=== PATIENT | male | born 1995 | race Caucasian/White ===

== ENCOUNTER 2018-12-19 02:03 | Emergency (ER) | payer BC ==
--- NOTE | 2018-12-19 02:12 | EDPHY ---
H & P Time Seen by Provider: 12/19/18 02:09 HPI/ROS: Chief Complaint: Depression, suicidal ideation HPI: 23-year-old male with a history of depression, seizure disorder, multiple brain surgeries is being brought in on a mental health hold tonight placed by police after the patient became upset this morning. Patient states that he is increasingly depressed about being alone. He is feeling suicidal but does not have a specific plan. He has had hospitalizations for depression in the past. He has been compliant with his medications. Denies any other ingestions. No recent illness. No fevers or chills. No headache. No nausea or vomiting. No chest pain or shortness of breath. ROS: 10 systems were reviewed and were negative except those elements noted in the HPI. PMH: Depression, seizure disorder, brain surgeries Social History: No smoking, no alcohol, no recreational drug use Family History: non-contributory Physical Exam: Gen: Awake, Alert, No Distress HEENT: Nose: no rhinorrhea Eyes: PERRLA, EOMI Mouth: Moist mucosa Neck: Supple, no JVD Chest: nontender, lungs clear to auscultation Heart: S1, S2 normal, no murmur Abd: Soft, non-tender, no guarding Back: no CVA tenderness, no midline tenderness Ext: no edema, non-tender Skin: no rash Neuro: CN II-XII intact, Sensation grossly intact, Strength 5/5 in bilateral upper and lower extremities, left foot drop chronically (Luther Hector) Constitutional: Initial Vital Signs Temperature (C) 36.2 C 12/19/18 02:16 Heart Rate 93 12/19/18 02:16 Respiratory Rate 16 12/19/18 02:16 Blood Pressure 139/85 H 12/19/18 02:16 O2 Sat (%) 95 12/19/18 02:16 O2 Delivery Mode Room Air Allergies/Adverse Reactions: lorazepam [From Ativan] Allergy (Verified 02/23/10 17:18) Home Medications: Medication Instructions Recorded ARIPiprazole [Aripiprazole] 30 mg PO DAILY@1830 12/19/18 Cholecalciferol Vit D3 [Vitamin D3 2,000 units PO DAILY@1530 12/19/18 (*)] Desvenlafaxine Succinate 25 mg PO DAILY@20 12/19/18 [Desvenlafaxine Succinate ER] Desvenlafaxine Succinate 50 mg PO DAILY@12/19/18 [Desvenlafaxine Succinate ER] Magnesium Citrate mg 12/19/18 OXcarbazepine [Trileptal 300mg (*)] 300 mg PO DAILY@12/19/18 OXcarbazepine [Trileptal 300mg (*)] 450 mg PO DAILY@12/19/18 Phenytoin Sodium Extended 30 mg PO 12/19/18 [Dilantin] Phosphatidylserine-Epa/Randall-3 450 mg PO DAILY 12/19/18 [Vayarin Plus 225 mg Capsule] Pregabalin [Lyrica 75mg (*)] 150 mg PO DAILY@12/19/18 Pregabalin [Lyrica] 25 mg PO DAILY@12/19/18 QUEtiapine FUMARATE [Seroquel 25 25 - 50 mg PO HS 12/19/18 mg (*)] Temazepam [Restoril 15 MG (*)] 15 mg PO HS PRN 12/19/18 lamoTRIgine [LaMICtal] 50 mg PO DAILY 12/19/18 Medical Decision Making ED Course/Re-evaluation: 0700 patient signed out to Dr. Laboy pending mental health evaluation. (Luther Hector) Other Provider: I assumed care of the patient at 0700. The patient was evaluated by Mental Health. Collateral information is obtained from the patient's mother. The patient does contract for safety mother does feel comfortable the patient being discharged home. The psychiatric service has vacated the patient's psychiatric hold. (Kiko Laboy) - Data Points Laboratory Results: Laboratory Results 12/19/18 02:20 12/19/18 02:20 12/19/18 12/19/18 12/19/18 09:00 02:20 02:20 WBC 3.75 10^3/uL L 10^3/uL (3.80-9.50) RBC 4.99 10^6/uL 10^6/uL (4.40-6.38) Hgb 15.1 g/dL g/dL (13.7-17.5) Hct 46.0 % % (40.0-51.0) MCV 92.2 fL fL (81.5-99.8) MCH 30.3 pg pg (27.9-34.1) MCHC 32.8 g/dL g/dL (32.4-36.7) RDW 13.7 % % (11.5-15.2) Plt Count 164 10^3/uL 10^3/uL (150-400) MPV 9.8 fL fL (8.7-11.7) Neut % (Auto) Not Reported Lymph % (Auto) Not Reported Marinette % (Auto) Not Reported Eos % (Auto) Not Reported Baso % (Auto) Not Reported Nucleat RBC Rel Count Not Reported Absolute Neuts (auto) Not Reported Absolute Lymphs (auto) Not Reported Absolute Monos (auto) Not Reported Absolute Eos (auto) Not Reported Absolute Basos (auto) Not Reported Absolute Nucleated RBC Not Reported Immature Gran % Not Reported Seg Neutrophils % 28.1 % % Band Neutrophils % 0.0 % % Lymphocytes % 61.5 % % Monocytes % 8.3 % % Eosinophils % 1.1 % % Basophils % 1.0 % % Metamyelocytes % 0.0 % % Myelocytes % 0.0 % % Promyelocytes % 0.0 % % Blast Cells % 0.0 % % Immature Gran # Not Reported Absolute Seg Neuts 1.05 10^3/uL L 10^3/uL (1.70-6.50) Absolute Band Neuts 0.00 10^3/uL 10^3/uL (0.00-0.70) Absolute Lymphocytes 2.31 10^3/uL 10^3/uL (1.00-3.00) Absolute Monocytes 0.31 10^3/uL 10^3/uL (0.30-0.80) Absolute Eosinophils 0.04 10^3/uL 10^3/uL (0.03-0.40) Absolute Basophils 0.04 10^3/uL 10^3/uL (0.02-0.10) Absolute Metamyelocyte 0.00 10^3/mL 10^3/mL (0.00-0.00) Absolute Myelocytes 0.00 10^3/mL 10^3/mL (0.00-0.00) Absolute Promyelocytes 0.00 10^3/uL 10^3/uL (0.00-0.00) Absolute Plasma Cells 0.00 10^3/uL 10^3/uL (0.00-0.00) Nucleated RBCs 0 /100 WBC /100 WBC (0-0) Atypical Lymphocytes 1+ H Absolute Blast Cells 0.00 10^3/uL 10^3/uL (0.00-0.00) Plasma Cells % 0.0 % % Platelet Estimate ADEQUATE (ADEQ) Oval Macrocytes 2+ H Sodium 141 mEq/L mEq/L (135-145) Potassium 4.3 mEq/L mEq/L (3.5-5.2) Chloride 105 mEq/L mEq/L (97-110) Carbon Dioxide 24 mEq/l mEq/l (22-31) Anion Gap 12 mEq/L mEq/L (6-14) BUN 13 mg/dL mg/dL (7-23) Creatinine 0.8 mg/dL mg/dL (0.7-1.3) Estimated GFR > 60 Glucose 109 mg/dL H mg/dL (70-100) Calcium 9.2 mg/dL mg/dL (8.5-10.4) Urine Opiates Screen NEGATIVE (NEGATIVE) Urine Barbiturates NON-NEGATIVE H (NEGATIVE) Ur Phencyclidine Scrn NON-NEGATIVE H (NEGATIVE) Ur Amphetamine Screen NEGATIVE (NEGATIVE) U Benzodiazepines Scrn NEGATIVE (NEGATIVE) Urine Cocaine Screen NEGATIVE (NEGATIVE) U Marijuana (THC) Screen NEGATIVE (NEGATIVE) Ethyl Alcohol < 10 mg/dL mg/dL (0-10) Departure - Departure Disposition: Home, Routine, Self-Care Clinical Impression: Severe major depression Condition: Fair Instructions: Depression (ED) Additional Instructions: 1. Please follow-up with the mental health resources provided in the ED today. 2. [facility] does operate a 24/ psychiatric crisis unit located at [facility]. The telephone number for the 24 hour crisis center is [phone]. 3. Please return to the ED if you are feeling suicidal, having thoughts of harming yourself/others or should you feel unsafe or have worsening symptoms.
[2018-12-19 02:33] LABS: PLATELET COUNT 164 10^3/uL (150-400)
[2018-12-19] MEDS ORDERED: OXcarbazepine 300 MG TAB PO SCH (08:00)
[2018-12-19] MEDS ORDERED: PREGABALIN 25 MG CAP PO ONE (08:00)
[2018-12-19] MEDS ORDERED: ARIPiprazole 10 MG TAB PO SCH (08:00)
[2018-12-19] MEDS ORDERED: PHENYTOIN SODIUM EXTENDED 100 MG CAP PO ONE (08:00)
[2018-12-19] MEDS ORDERED: OMEGA-3 FATTY ACIDS 1,000 MG CAP PO SCH (08:00)
[2018-12-19 08:52] VITALS: BP 110/72
--- NOTE | 2018-12-19 11:11 | ASMTTLCEVL ---
TLC Evaluation - Basic Information Evaluation Start Date and 12/19/2018 09:30 AM Time Hospital Status Answers: M1 Hold 72-hr M1 Hold Start Date 12/19/2018 01:20 AM and Time Patient statement Notes: I was kind of depressed last night. My father called 911. I have some thoughts about suicide but I would never act on them. I feel much better this morning. I feel I can ensure my own safety if permitted to leave the hospital. Narrative Notes: Pt is a 23 yo, single, disabled, male with reported history of seizure disorders and 9-[address] [facility] and history of depression with psychotic features, brought to [facility] ED by [employer] on M1 hold which noted: Respondent was angry with his father for unknown reason. Respondent threw a show at father. There were texts sent to father referencing suicidal thoughts. Upon contact, respondent told officer he wanted to commit suicide, but couldnt (wouldnt provide further). Respondent told officer he was going to hurt himself. Pt reported having fleeting suicidal ideation last night, currently denies intent/plans/means to attempt to kill himself. Pt denied any homicidal ideation. Pt denied having any A/V hallucinations and did not appear to be responding to any internal stimuli. Diagnosis History Notes: Major depression with psychotic features. Prior suicide attempts Notes: Pt denied any past history of suicide attempts. Prior hospitalizations Notes: Pt reported being hospitalized at [facility] at age 13 or 14. He was hospitalized at [facility] at age 17 for hearing voices. Treatment Responses Notes: Mother reported that pt is medication compliant. History of violence Notes: Pt and mother denied any history of aggression/violence. Therapist: None. Psychiatrist: Psychiatrist is Clint Armstrong MD for the past 5 years. Pts neurologist is Carmita Burris MD. Medications (name, dosage, route, freq uency) Notes: Dilantin 30 mg po TID , 1529, 1999; Lyrica 175 mg po daily; Trileptal 450 mg po BID at 08 and 1529 and 300 mg po at 1999; Lesfenelec 50 mg po at 1999 and 25 mg po at 1999; Abilify 30 mg po daily; Seroquel 12.5 mg po at 1830; Lamotrigine 37.5 mg po at 1830; Vitamin D3 2000 IU po daily at 1530; Fish oil 1280 mg BID at 08 and 1530. Allergies/Reaction Notes: Lorazepam (from Ativan). Sleep Notes: WNL. Appetite Notes: WNL. Medical/Surgical history Notes: Pt has history of seizure disorder since 18 months of age and has had 9 or 10 corrective surgeries at [facility]. Pt reported the last time he had a seizure was 10-11 years ago. Substance use history (frequency, intensity, his tory, duration) Notes: None reported. BAL zero. UDS results positive for barbiturates and phencyclidine (prescription medications). Family composition Notes: Parents, Eloise Oshea and Martin Pettit remain . Pt has a 27 yo sister that also resides in [facility]. Need for family Answers: Yes participation in patient's care Family psychiatric/substance abuse history Notes: Mother, Emiliana Oshea reported having history of depression; maternal grandfather with history of alcoholism. Denied any family history of suicide attempts or completions. Developmental history Notes: Pt reported he was born in [place], [place] and lived there until age 7 when family moved to [place]. Pt denied any history of TBIs, LOC or concussions. Pt denied any childhood experiences of physical, emotional or sexual abuse/trauma. Abuse concerns Answers: None Marital status/children Notes: Pt is single, never , no dependents. Living situation Notes: Pt resides with his parents in [place]. Sexual history/orientation Notes: Not active. Heterosexual. Peer support/family strengths Notes: Parents. Education level/history Notes: Pt reported he dropped out mid-way through the 11th grade. Work history Notes: Pt has been on disability since age 17. Notes: None. Legal Notes: No arrest/legal history reported. Protestant/Spiritual Notes: Pt reported he believes in a higher power. Leisure Notes: Pt reported he enjoys video and computer nimo and listening to music. Collateral Notes: Mother, Eloise Oshea [phone], present with pt in ED throughout interview. Patient's strengths Answers: Funny/Using Humor (Please select at least TWO strengths): Insightful Supportive Family Willingness TLC Evaluation - Mental Status Exam Appearance: Answers: Appropriate Clean Unkempt Eye Contact: Answers: Good/Direct Mood: Answers: Euthymic Affect: Answers: Appropriate Calm Cheerful Flat Behavior: Answers: Appropriate Cooperative Anxious Speech: Answers: Relevant Logical Clear Coherent Soft Thought Process: Answers: Organized Oriented Alert Goal Oriented Intact Insight: Answers: Good Judgement: Answers: Fair Depression Answers: Diminished Pleasure Signs/Symptoms: Flat Affect Psychomotor Retardation Sad Mood Withdrawn Hallucinations: Answers: None Current Stage of Change Answers: Maintenance Pt reported to have Answers: Yes suicidal/self-injuring ideation/behavior? Pt reported to be making Answers: No suicidal/self-injuring threats? Pt reported to have Answers: No aggression/assault ideation/behavior? Pt reported to be making Answers: No aggression/assault threats? Pt exhibits inability to Answers: No care for self/grave disability? Patient has a specific Answers: No plan? Pt has access to means to Answers: No execute the plan? Ideation involves Answers: No serious/lethal intent? Ideation has Answers: No delusional/hallucinatory content? History of Answers: No suicidal/self-injuring ideation, behavior, or threats? History of Answers: No aggressive/assaultive ideation, behavior, or threats? History of serious Answers: No physical harm to self/others while in treatment setting? [facility] Evaluation - Suicide/Homicide Risk Suicide Risk Factors: Answers: Calm After Agitated Depression Flat Affect Inadequate Social Support Single Homicide/violence risk Answers: None factors: Current Suicidal Answers: No Ideation? Current Suicidal Ideation Answers: No in the Past 48 Hours? Current Suicidal Ideation Answers: No in the Past Month? Current Suicidal Answers: No Ideation, Worst Ever? Suicide Internal Answers: Absence of Psychosis Protective Factors: Vimal with Stress Suicide External Answers: Positive Therapeutic Protective Factors: Relationships Ranking of patient's Answers: Low suicidal risk: Ranking of patient's Answers: Low homicidal risk: TLC Evaluation - Wrap-up BDI Total Score: 25 BDI Question #2 Score: 2 BDI Question #9 Score: 1 BSS Total Score: 1 AXIS I Diagnosis (include DSM-V and ICD-10 codes), must also be entered in [employer], which is the source of truth. Notes: Major Depressive Disorder, recurrent, moderate 296.32 (F33.1) In consultation with [facility] ED physician, Magdy Laboy MD, Dr. Laboy concurred that pt does not appear to meet 27-65 criteria requiring psychiatric hospitalization as pt does not appear to be an imminent risk of harm to self/others/gravely disabled due to a mental illness condition. Dr. Laboy provided verbal order read back vacating M1 hold at 1015 hrs. Evaluation End Date and 12/19/2018 10:50 AM Time (HH:NATALIO): Date Signed: 12/19/2018 11:10 AM Electronically Signed By:South Live
--- NOTE | 2018-12-19 11:12 | ASMTTCLDSP ---
TLC Discharge Disposition Disposition: Answers: Discharge If Answers: Yes DISCHARGED: Patient/family given suicide hotline info & [employer] brochure? Disposition Notes: Notes: Pt stated commitment or ability to keep self safe, denied thoughts of self harm or harm to others. Pt expressed a desire to f/u with Clint Armstrong MD. Pt was given local hotline information and [employer] brochure After an Attempt. Discharge Concerns/Recommendations: Notes: In consultation with [facility] ED physician, Magdy Laboy MD, Dr. Laboy concurred that pt does not appear to meet 27-65 criteria requiring psychiatric hospitalization as pt does not appear to be an imminent risk of harm to self/others/gravely disabled due to a mental illness condition. Dr. Laboy provided verbal order read back vacating M1 hold at 1015 hrs. Was patient given the Answers: Not applicable Inpatient Behavioral Health Prohibited Belongings List while in the ED? Psychiatrist vacating M1 Magdy Laboy MD Hold: Date and time M1 hold 12/19/2018 10:15 AM vacated (time format is hh:mm): Type of Hold: Answers: M1/72-hour Hold Hold initiated by: Answers: Police Date Signed: 12/19/2018 11:11 AM Electronically Signed By:South Live
[2018-12-19] MEDS ORDERED: DESVENLAFAXINE SUCCINATE 50 MG PO SCH (20:00)
[2018-12-19] MEDS ORDERED: DESVENLAFAXINE SUCCINATE 25 MG PO SCH (20:00)
== END 2018-12-19 11:03 | disposition home or self-care (01) ==
LOC: EDUNIT#
DX: F32.9 Major depressive disorder, single episode, unspecified (principal)
CPT/HCPCS: 80305; G0480